=== PATIENT | female | born 1955 ===

== ENCOUNTER 2017-06-14 19:51 | Observation (INO) | payer MEDICARE ==
[2017-06-14] MEDS ORDERED: Magnesium Sulfate 2 gm/50 ml 2 GM/50 ML BAG IVPB STA (20:07)
[2017-06-14] MEDS ORDERED: Albuterol-Ipratrop 3 mg / 0.5 (3 ml) UD INH STA ×3 (20:07→20:08)
[2017-06-14 20:23] LABS: BASO # 0.1 K/uL (0.0-0.2); BASO % 0.8 % (0.0-2.0); EOS # 0.6 K/uL (0.0-0.7); EOS % 6.5 % (0.0-4.0); HEMATOCRIT 41.9 % (34.0-47.0); LYMPH # 2.8 K/uL (1.0-4.3); LYMPH % 28.7 % (20.0-40.0); MEAN CELL VOLUME 88.9 fl (81.0-99.0); MEAN CORPUSCULAR HGB CONC 33.8 g/dL (33.0-37.0); MEAN PLATELET VOLUME 7.7 fl (7.2-11.7); MONO # 0.7 K/uL (0.0-0.8); MONO % 7.6 % (0.0-10.0); NEUT # 5.5 K/uL (1.8-7.0); NEUT % 56.4 % (50.0-75.0); RED CELL DISTRIBUTION WIDTH 12.8 % (11.5-14.5); WHITE BLOOD COUNT 9.8 K/uL (4.8-10.8)
[2017-06-14] MEDS ORDERED: Albuterol-Ipratrop 3 mg / 0.5 (3 ml) UD ONE (20:24)
[2017-06-14] MEDS ORDERED: Magnesium Sulfate 2 gm/50 ml 2 GM/50 ML BAG ONE (20:24)
[2017-06-14 20:36] LABS: ALB/GLOB RATIO 1.3 (1.0-2.1); ALKALINE PHOSPHATASE 93 U/L (38-126); ALT/SGPT 57 U/L (9-52); AST/SGOT 38 U/L (14-36); BILIRUBIN,TOTAL 0.7 mg/dl (0.2-1.3); BLOOD UREA NITROGEN 19 mg/dl (7-17); CALCIUM 9.9 mg/dL (8.4-10.2); CARBON DIOXIDE 28 mmol/L (22-30); CHLORIDE 102 mmol/L (98-107); GFR AFRICAN-AMERICAN > 60; GLUCOSE,RANDOM 159 mg/dL (65-105); POTASSIUM 4.4 MMOL/L (3.6-5.0); SODIUM 139 mmol/l (132-148); TOTAL PROTEIN 7.7 G/DL (6.3-8.2)
[2017-06-14 20:40] LABS: VENOUS BLOOD GAS BASE EXCESS 3.8 mmol/L (0.0-2.0); VENOUS BLOOD GAS PCO2 42 mmHg (40-60); VENOUS BLOOD PH 7.44 (7.32-7.43)
--- NOTE | 2017-06-14 21:16 | ED PDOC ---
HPI: SOB/CHF/COPD Time Seen by Provider: 06/14/17 20:00 Chief Complaint (Nursing): Respiratory Distress Chief Complaint (Provider): Shortnss of Breath History Per: Patient History/Exam Limitations: no limitations Onset/Duration Of Symptoms: Days (x7 days) Current Symptoms Are (Timing): Still Present Initiating Event: Out Of Medications (Out of dulera) Associated Symptoms: Chest Pain. denies: Fever, Chills, Productive Cough Additional Complaint(s): Puja Deng, a 61 year old female, who has a past medical history of diabetes and asthma presents to the ED complaining of shortness of breath x7 days. The patient states that she is out of dulera which is the medication she uses to keep her asthma under control, and now her asthma is out of control. She reports that she has been using her albuterol pump and nebulizer but they are not helping. Patient also notes a non productive cough associated with bilateral chest pain. Denies fever, chills. Past Medical History Reviewed: Historical Data, Nursing Documentation, Vital Signs Vital Signs: Last Vital Signs Temp 98.3 F 06/14/17 22:11 Pulse 83 06/14/17 22:11 Resp 24 06/14/17 22:11 BP 146/76 06/14/17 19:52 Pulse Ox 96 06/14/17 21:47 - Medical History PMH: Asthma, Diabetes - Family History Family History: States: Unknown Family Hx - Allergies Allergies/Adverse Reactions: Allergies Allergy/AdvReac Type Severity Reaction Status Date / Time iodine Allergy RASH Verified 06/14/17 19:57 Review of Systems ROS Statement: Except As Marked, All Systems Reviewed And Found Negative Constitutional: Negative for: Fever, Chills Cardiovascular: Positive for: Chest Pain (Bilateral chest pain.) Respiratory: Positive for: Cough (non productive cough), Shortness of Breath Physical Exam - Reviewed Nursing Documentation Reviewed: Yes Vital Signs Reviewed: Yes - Physical Exam Appears: Positive for: Non-toxic, No Acute Distress Head Exam: Positive for: ATRAUMATIC, NORMAL INSPECTION, NORMOCEPHALIC Skin: Positive for: Normal Color, Warm, Dry Eye Exam: Positive for: Normal appearance, EOMI, PERRL ENT: Positive for: Normal ENT Inspection Neck: Positive for: Normal, Painless ROM, Supple Cardiovascular/Chest: Positive for: Regular Rate, Rhythm, Chest Non Tender. Negative for: Tachycardia Respiratory: Positive for: Decreased Breath Sounds, Wheezing (diffuse wheezing bilaterally; audible wheezing), Respiratory Distress (Mild respiratory distress. ) Gastrointestinal/Abdominal: Positive for: Normal Exam Back: Positive for: Normal Inspection Neurologic/Psych: Positive for: Alert, Oriented, Gait - Laboratory Results Result Diagrams: 06/14/17 20:20 06/14/17 20:20 - ECG O2 Sat by Pulse Oximetry: 96 (RA) Pulse Ox Interpretation: Normal Medical Decision Making Medical Decision Makin Initial Impression: 61 year old female presenting with asthma exacerbation Initial Plan: * ABG shock panel * VBG shock panel * EKG * Comp Metabolic Panel * Troponin * CBC * Chest x-ray * Duoneb 3ml INH * Magnesium Sulfate 2gm in 50ml IVPB * Solu-medrol 125mg IVP * Toradol 15mg IVP * Peak flow pre/post .tx * Reevaluation 2100 Pt. still wheezing considerably and has not improved significantly, although patient reports she's feeling better. Still audibly wheezing and lung exam in unchanged. Discussed case with Dr. Dolly Lisa who examined patient at bedside, patient to be admitted to [facility] for Asthma exacerbation. Scribe Attestation Documented by Mariam Condon acting as a scribe for Mango Garcia MD. Provider Attestation All medical record entries made by the Scribe were at my direction and personally dictated by me. I have reviewed the chart and agree that the record accurately reflects my personal performance of the history, physical exam, medical decision making, and the department course for this patient. I have also personally directed, reviewed, and agree with the discharge instructions and disposition. Disposition - Clinical Impression Clinical Impression: Asthma exacerbation - Disposition Disposition Time: 21:05 Condition: STABLE Forms: Vyyo (Japanese)
--- NOTE | 2017-06-14 21:18 | CP.PCM.HP ---
History of Present Illness - History of Present Illness History of Present Illness: 61 yr old F with PMHx including Asthma, DM Type 2, Hyperlipidemia and Bipolar Disorder presented to the ED with worsening SOB and wheezing x 1 week after she ran out of her Dulera (corticosteroid inhaler). She has associated symptom of non-productive cough and chest pain. Denies fever, palpitations, weakness or dizziness. Reports using her albuterol inhaler and nebulizer but it hasn't helped much. PMD: Dr. Saenz PMHx: Asthma, DM Type 2, Hyperlipidemia and Bipolar Disorder SurgHx: Hysterectomy, Lipoma removed from abd LUQ, Oophorectomy, Cardiac Cath FHx: Mother at 84-cardiac arrest/DM Type 2; Father at 70 -liver failure/hepatitis, siblings with HTN and asthma SocHx: denies smoking/Etoh/drugs; lives alone, daughter lives in [place], [place] [phone] Medications: Dulera 200mcg/5mcg BID, Ventolin 90mcg , Montelukast 10mg PO QD, Omeprazole 20mg PO BID, HCTZ 25mg PO QD, Lisinopril 40mg PO QD, Metformin 500mg PO BID Allergies: iodine (contrast)-causes rash ED course -VS:BP 146/76 mmHg, HR 103, T 98 F, RR 23, O2 sat 96% on room air -EKG: NSR -CXR: pulmonary congestion, official report pending -CBC wnl, troponin neg x 1, alk phos 93 -CMP: wnl, AST/ALT 38/57 -vBG: pO2 40, pH 7.44, pCO2 42, HCO3 27.2, Lactate 1.5 -ED tx: Duoneb x 3, Mag 2gm IV once, Toradol 15mg IV once, Solu-medrol 125mg IV once Present on Admission - Present on Admission Any Indicators Present on Admission: No History of DVT/PE: No History of Uncontrolled Diabetes: No Urinary Catheter: No Decubitus Ulcer Present: No Review of Systems - Review of Systems All systems: reviewed and no additional remarkable complaints except (for what is mentioned in the HPI) Meds Allergies/Adverse Reactions: Allergies Allergy/AdvReac Type Severity Reaction Status Date / Time iodine Allergy RASH Verified 06/14/17 19:57 Physical Exam - Constitutional Appears: Other (in mild respiratory distress) - Head Exam Head Exam: ATRAUMATIC, NORMOCEPHALIC - Eye Exam Eye Exam: EOMI, PERRL - ENT Exam ENT Exam: Mucous Membranes Moist - Neck Exam Neck exam: Positive for: Full Rom. Negative for: Lymphadenopathy - Respiratory Exam Respiratory Exam: Wheezes (diffuse, audible), Respiratory Distress (mild) - Cardiovascular Exam Cardiovascular Exam: REGULAR RHYTHM, +S1, +S2 - GI/Abdominal Exam GI & Abdominal Exam: Normal Bowel Sounds, Soft (obese). absent: Tenderness - Extremities Exam Extremities exam: Positive for: full ROM. Negative for: calf tenderness, pedal edema - Back Exam Back exam: absent: CVA tenderness (L), CVA tenderness (R) - Neurological Exam Neurological exam: Alert, CN II-XII Intact, Oriented x3 - Psychiatric Exam Psychiatric exam: Normal Affect, Normal Mood - Skin Skin Exam: Dry, Intact, Warm Results - Vital Signs Recent Vital Signs: Last Vital Signs Temp 98 F 06/14/17 19:52 Pulse 103 H 06/14/17 19:52 Resp 23 06/14/17 19:52 BP 146/76 06/14/17 19:52 Pulse Ox 96 06/14/17 21:16 - Labs Result Diagrams: 06/14/17 20:20 06/14/17 20:20 Labs: Laboratory Results - last 24 hr 06/14/17 06/14/17 06/14/17 20:20 20:20 20:39 WBC 9.8 RBC 4.71 Hgb 14.1 Hct 41.9 MCV 88.9 MCH 30.0 MCHC 33.8 RDW 12.8 Plt Count 315 MPV 7.7 Neut % (Auto) 56.4 Lymph % (Auto) 28.7 [place] % (Auto) 7.6 Eos % (Auto) 6.5 H Baso % (Auto) 0.8 Neut # 5.5 Lymph # 2.8 [place] # 0.7 Eos # 0.6 Baso # 0.1 pO2 40 VBG pH 7.44 H VBG pCO2 42 VBG HCO3 27.2 VBG Total CO2 29.8 H VBG O2 Sat (Calc) 78.7 H VBG Base Excess 3.8 H VBG Potassium 3.6 Glucose 167 H Lactate 1.5 FiO2 21.0 Sodium 139 137.0 Potassium 4.4 Chloride 102 103.0 Carbon Dioxide 28 Anion Gap 13 BUN 19 H Creatinine 0.8 Est GFR ( Amer) > 60 Est GFR (Non-Af Amer) > 60 Random Glucose 159 H Calcium 9.9 Total Bilirubin 0.7 AST 38 H ALT 57 H Alkaline Phosphatase 93 Troponin I < 0.0120 Total Protein 7.7 Albumin 4.4 Globulin 3.3 Albumin/Globulin Ratio 1.3 Venous Blood Potassium 3.6 Assessment & Plan - Assessment and Plan (Free Text) Assessment: 61 yr old F admitted for Asthma exacerbation with PMHx of Asthma, DM Type 2, Hyperlipidemia and Bipolar Disorder. Patient continued to have audible wheezing and mild respiratory distress despite ED tx with duoneb, IV solumedrol and IV Mag. Asthma Exacerbation -acute, due to medication non-compliance -Admit to tele for further management -Albuterol 3mL INH Q4 -Methylprednisone 60mg IV Q12H -Montelukast 10mg PO QD -supplemental O2 via nasal cannula to keep O2 sat> 92% Diabetes Type 2 -controlled, chronic -Metformin 500mg PO BID -accucheck ACHS -f/u HbA1c, lipid panel Bipolar disorder -stable, chronic -not on home meds DVT prophylaxis -Lovenox 40mg SC QD - Date & Time Date: 06/15/17 Time: 21:30
[2017-06-15] MEDS: Albuterol-Ipratrop 3 mg / 0.5 (3 ml) UD INH SCH ×5 (00:46→19:45)
[2017-06-15] MEDS ORDERED: Albuterol-Ipratrop 3 mg / 0.5 (3 ml) UD INH STA (05:36)
[2017-06-15 08:24] LABS: ALB/GLOB RATIO 1.3 (1.0-2.1); ALKALINE PHOSPHATASE 93 U/L (38-126); ALT/SGPT 42 U/L (9-52); AST/SGOT 32 U/L (14-36); BILIRUBIN,TOTAL 0.8 mg/dl (0.2-1.3); BLOOD UREA NITROGEN 24 mg/dl (7-17); CALCIUM 9.8 mg/dL (8.4-10.2); CARBON DIOXIDE 26 mmol/L (22-30); CHLORIDE 99 mmol/L (98-107); CHOLESTEROL 279 mg/dL (0-199); GFR AFRICAN-AMERICAN > 60; GLUCOSE,RANDOM 383 mg/dL (65-105); POTASSIUM 4.8 MMOL/L (3.6-5.0); SODIUM 136 mmol/l (132-148); TOTAL PROTEIN 7.3 G/DL (6.3-8.2)
[2017-06-15 08:25] LABS: BASO % 0.3 % (0.0-2.0); EOS % 0.1 % (0.0-4.0); HEMATOCRIT 40.3 % (34.0-47.0); LYMPH # 0.8 K/uL (1.0-4.3); LYMPH % 10.8 % (20.0-40.0); MEAN CELL VOLUME 90.2 fl (81.0-99.0); MEAN CORPUSCULAR HEMOGLOBIN 30.6 pg (27.0-31.0); MEAN PLATELET VOLUME 8.6 fl (7.2-11.7); MONO # 0.1 K/uL (0.0-0.8); NEUT # 6.7 K/uL (1.8-7.0); NEUT % 87.8 % (50.0-75.0); RED CELL DISTRIBUTION WIDTH 13.3 % (11.5-14.5); WHITE BLOOD COUNT 7.6 K/uL (4.8-10.8)
[2017-06-15] MEDS ORDERED: methylPREDNISolone 60 MG in Sodium Chloride 0.9% 50 ML IV SCH (09:00)
[2017-06-15] MEDS: Enoxaparin 40 mg Syringe SC SCH (09:38)
[2017-06-15] MEDS: Pantoprazole 40 mg EC Tab PO SCH (09:38)
--- NOTE | 2017-06-15 09:42 | RAD ---
PROCEDURE: CHEST RADIOGRAPH, 1 VIEW HISTORY: asthma, cough COMPARISON: None available. FINDINGS: LUNGS: Clear. PLEURA: No pneumothorax or pleural fluid seen. CARDIOVASCULAR: Normal. OSSEOUS STRUCTURES: No significant abnormalities. VISUALIZED UPPER ABDOMEN: Normal. OTHER FINDINGS: None. IMPRESSION: No active disease.
[2017-06-15] MEDS ORDERED: Glucagon Recombinant 1 mg Inj IM PRN (11:19)
[2017-06-15] MEDS ORDERED: Dextrose 50% SYRINGE Inj (50 ml) IV PRN (11:19)
--- NOTE | 2017-06-15 13:12 | CARD ---
APPROVED REPORT EKG Measurement Heart [id number] <Conclusion> Normal sinus rhythm Normal ECG
[2017-06-15] MEDS: Insulin Regular 100 units/ml SC SCH ×3 (13:13→21:30)
--- NOTE | 2017-06-15 13:13 | CP.PCM.PN ---
Subjective - Date & Time of Evaluation Date of Evaluation: 06/15/17 Time of Evaluation: 08:15 - Subjective Subjective: Pt was seen and evaluated at bedside, appeared in no acute distress, stated that her breathing has much improved since yesterday when she came into the ED. It was explained to pt that because she is getting steroids to help with her breathing, that her blood sugar will likely increase and she may require insulin to control it during the hospital stay. Pt verbalized understanding and agreed. She also complained of burning sensation "in the whole body," and stated that she has had this happen before, and that it has been happening for 2 -3 days. Stated that taking omeprazole helps control the burning sensation in her abdomen, and that drinking water helped as well. No signs of allergic reaction to any medication pt has received this admission, no sign of allergic reaction in general. Denied chest pain, abdominal pain, rash/hives, calf/leg pain/swelling. Objective - Vital Signs/Intake and Output Vital Signs (last 24 hours): Temp Pulse Resp BP Pulse Ox 97.6 F 85 18 137/84 95 06/15/17 12:00 06/15/17 12:00 06/15/17 12:00 06/15/17 12:00 06/15/17 12:00 - Medications Medications: Current Medications Acetaminophen (Tylenol 325mg Tab) 650 mg PO Q6 PRN PRN Reason: Pain, Mild (1-3) Albuterol/Ipratropium (Duoneb 3 Mg/0.5 Mg (3 Ml) Ud) 3 ml INH RQID [facility] Last Admin: 06/15/17 11:25 Dose: 3 ml Dextrose (Dextrose 50% Inj) 0 ml IV STAT PRN; Protocol PRN Reason: Hyglycemia Protocol Dextrose (Glutose 15) 0 gm PO ONCE PRN; Protocol PRN Reason: Hypoglycemia Protocol Enoxaparin Sodium (Lovenox) 40 mg SC DAILY [facility] PRN Reason: Protocol Last Admin: 06/15/17 09:38 Dose: 40 mg Glucagon (Glucagen Diagnostic Kit) 0 mg IM STAT PRN; Protocol PRN Reason: Hypoglycemia Protocol Hydrochlorothiazide (Hydrodiuril) 25 mg PO DAILY [facility] Last Admin: 06/15/17 09:31 Dose: 25 mg Methylprednisolone 80 mg/ (Sodium Chloride) 50 mls @ 100 mls/hr IVPB Q8 [facility] Insulin Human Regular (Humulin R) 0 units SC ACHS [facility] PRN Reason: Protocol Lisinopril (Zestril) 40 mg PO DAILY [facility] Last Admin: 06/15/17 09:31 Dose: 40 mg Metformin HCl (Glucophage) 500 mg PO BIDWM [facility] Last Admin: 06/15/17 09:31 Dose: 500 mg Montelukast Sodium (Singulair) 10 mg PO DAILY [facility] Last Admin: 06/15/17 09:31 Dose: 10 mg Pantoprazole Sodium (Protonix Ec Tab) 40 mg PO DAILY [facility] Last Admin: 06/15/17 09:38 Dose: 40 mg - Constitutional Appears: No Acute Distress - Head Exam Head Exam: ATRAUMATIC, NORMAL INSPECTION - Eye Exam Eye Exam: EOMI, Normal appearance - ENT Exam ENT Exam: Mucous Membranes Moist - Neck Exam Neck Exam: Full ROM, Normal Inspection - Respiratory Exam Respiratory Exam: NORMAL BREATHING PATTERN. absent: Accessory Muscle Use, Respiratory Distress Additional comments: slightly decreased breath sounds at bases bilaterally - Cardiovascular Exam Cardiovascular Exam: REGULAR RHYTHM, +S1, +S2 - GI/Abdominal Exam GI & Abdominal Exam: Soft, Normal Bowel Sounds - Extremities Exam Extremities Exam: Normal Capillary Refill, Normal Inspection. absent: Calf Tenderness, Pedal Edema - Back Exam Back Exam: NORMAL INSPECTION - Neurological Exam Neurological Exam: Alert, Awake, Oriented x3 - Psychiatric Exam Psychiatric exam: Normal Mood - Skin Skin Exam: Dry, Intact, Warm Assessment and Plan - Assessment and Plan (Free Text) Assessment: 61 yo old F with PMH asthma, HTN, DM2, HLD, bipolar disorder admitted for asthma exacerbation. Pt symptoms have improved since admission, she is no longer in any respiratory distress, and is continuing to receive methylprednisone, which is helping improve symptoms. Plan: 1) Asthma Exacerbation -Acute, due to medication noncompliance since pt has not refilled meds -Continue with methylprednisone 80mg IV Q8H -Continue with montelukast 10mg PO QD -Continue with albuterol 3mL INH Q4 -Monitor for respiratory distress 2) Diabetes Type 2 -Continue home meds: metformin 500mg PO BID -Monitor blood glucose with accucheck -Insulin coverage scale since pt is getting methylprednisone and blood glucose can spike. Pt is insulin naive. -Hyperglycemia protocol -F/u HbA1c, lipid panel 3) Hypertension -Controlled -Continue with home meds: Lisinopril 40mg PO daily, HCTZ 25 mg PO daily 4) Hyperlipidemia -Not on meds as per pcp due to elevated lft -F/u with outpt pcp 5) GERD -Continue pantoprazole 40mg PO daily 6) Bipolar disorder -Stable, chronic -Not on home meds 7) DVT prophylaxis -Lovenox 40mg SC QD
[2017-06-15] MEDS: methylPREDNISolone 80 MG in Sodium Chloride 0.9% 50 ML IVPB SCH (16:52)
[2017-06-16] MEDS: methylPREDNISolone 80 MG in Sodium Chloride 0.9% 50 ML IVPB SCH ×2 (01:08→09:22)
[2017-06-16] MEDS: Insulin Regular 100 units/ml SC SCH ×4 (06:51→22:18)
[2017-06-16] MEDS: Albuterol-Ipratrop 3 mg / 0.5 (3 ml) UD INH SCH ×4 (08:00→19:04)
[2017-06-16] MEDS: Enoxaparin 40 mg Syringe SC SCH (09:23)
[2017-06-16] MEDS: Pantoprazole 40 mg EC Tab PO SCH (09:23)
--- NOTE | 2017-06-16 10:18 | CP.PCM.PN ---
Subjective - Date & Time of Evaluation Date of Evaluation: 06/16/17 Time of Evaluation: 07:05 - Subjective Subjective: Patient was seen and evaluated at bedside, was observed sleeping comfortably in bed earlier in the morning. Reports that her breathing has improved since admission, has no dyspnea at rest, but reports feeling a tightness in her chest upon ambulation. Offers no other complaints at this time. Denies chest pain, worsening sob, abdominal pain, leg/calf pain/swelling. Of note, patient has two medical records in [facility]. Other record has birthday listed as 1955. Objective - Vital Signs/Intake and Output Vital Signs (last 24 hours): Temp Pulse Resp BP Pulse Ox 97.8 F 74 18 121/77 95 06/16/17 08:00 06/16/17 09:23 06/16/17 08:00 06/16/17 09:23 06/16/17 08:00 Intake and Output: 06/16/17 06/16/17 06:59 18:59 Intake Total 450 Balance 450 - Medications Medications: Current Medications Acetaminophen (Tylenol 325mg Tab) 650 mg PO Q6 PRN PRN Reason: Pain, Mild (1-3) Albuterol/Ipratropium (Duoneb 3 Mg/0.5 Mg (3 Ml) Ud) 3 ml INH RQID [facility] Last Admin: 06/16/17 08:00 Dose: 3 ml Dextrose (Dextrose 50% Inj) 0 ml IV STAT PRN; Protocol PRN Reason: Hyglycemia Protocol Dextrose (Glutose 15) 0 gm PO ONCE PRN; Protocol PRN Reason: Hypoglycemia Protocol Enoxaparin Sodium (Lovenox) 40 mg SC DAILY [facility] PRN Reason: Protocol Last Admin: 06/16/17 09:23 Dose: 40 mg Glucagon (Glucagen Diagnostic Kit) 0 mg IM STAT PRN; Protocol PRN Reason: Hypoglycemia Protocol Hydrochlorothiazide (Hydrodiuril) 25 mg PO DAILY [facility] Last Admin: 06/16/17 09:22 Dose: 25 mg Methylprednisolone 80 mg/ (Sodium Chloride) 50 mls @ 100 mls/hr IVPB Q8 [facility] Last Admin: 06/16/17 09:22 Dose: 100 mls/hr Insulin Human Regular (Humulin R) 0 units SC ACHS [facility] PRN Reason: Protocol Last Admin: 06/16/17 06:51 Dose: 5 units Lisinopril (Zestril) 40 mg PO DAILY [facility] Last Admin: 06/16/17 09:23 Dose: 40 mg Metformin HCl (Glucophage) 500 mg PO BIDWM [facility] Last Admin: 06/16/17 09:23 Dose: 500 mg Montelukast Sodium (Singulair) 10 mg PO DAILY [facility] Last Admin: 06/16/17 09:22 Dose: 10 mg Pantoprazole Sodium (Protonix Ec Tab) 40 mg PO DAILY [facility] Last Admin: 06/16/17 09:23 Dose: 40 mg - Constitutional Appears: Non-toxic, No Acute Distress - Head Exam Head Exam: NORMAL INSPECTION - Eye Exam Eye Exam: EOMI - ENT Exam ENT Exam: Mucous Membranes Moist - Respiratory Exam Respiratory Exam: Clear to Ausculation Bilateral, NORMAL BREATHING PATTERN. absent: Wheezes - Cardiovascular Exam Cardiovascular Exam: REGULAR RHYTHM, +S1, +S2 - GI/Abdominal Exam GI & Abdominal Exam: Soft, Normal Bowel Sounds - Extremities Exam Extremities Exam: absent: Calf Tenderness - Back Exam Back Exam: NORMAL INSPECTION - Neurological Exam Neurological Exam: Alert, Awake, Oriented x3 - Psychiatric Exam Psychiatric exam: Normal Mood - Skin Skin Exam: Dry, Intact, Normal Color, Warm Assessment and Plan - Assessment and Plan (Free Text) Assessment: 61 yo old F with PMH asthma, HTN, DM2, HLD, bipolar disorder admitted for asthma exacerbation. Pt symptoms have improved since admission, she is no longer in respiratory distress, but is experiencing some chest tightness upon excretion, and is continuing to receive methylprednisone, which is helping improve symptoms. Plan: 1) Asthma Exacerbation -Acute, due to medication noncompliance since pt has not refilled meds -Asthma- mild persistent -Improving -Continue with methylprednisone, decrease dose to 60mg IV Q8H -Continue with montelukast 10mg PO QD -Continue with albuterol 3mL INH Q4 -Monitor for respiratory distress 2) Diabetes Type 2 -Continue home meds: metformin 500mg PO BID -Monitor blood glucose with accucheck -Insulin coverage scale since pt is getting methylprednisone and blood glucose can spike. Pt is insulin naive. -Hyperglycemia protocol -A1C 7.2, last known 8.1 in 07/2016 as per eCW 3) Hypertension -Controlled -Continue with home meds: Lisinopril 40mg PO daily, HCTZ 25 mg PO daily 4) Hyperlipidemia -Not on meds as per pcp due to elevated LFTs in the past -Cholesterol 279, LDL 211, HDL 47 -F/u with outpt pcp 5) GERD -Continue pantoprazole 40mg PO daily 6) Bipolar disorder -Stable, chronic -Not on home meds 7) DVT prophylaxis -Lovenox 40mg SC QD
[2017-06-16] MEDS ORDERED: Insulin Lispro (humaLOG) 100 Units/ml Inj SC ONE (16:14)
[2017-06-16] MEDS: methylPREDNISolone 60 MG in Sodium Chloride 0.9% 50 ML IVPB SCH (16:47)
[2017-06-17] MEDS: methylPREDNISolone 60 MG in Sodium Chloride 0.9% 50 ML IVPB SCH ×2 (00:20→09:25)
[2017-06-17] MEDS: Insulin Regular 100 units/ml SC SCH ×2 (06:48→13:17)
[2017-06-17] MEDS: Albuterol-Ipratrop 3 mg / 0.5 (3 ml) UD INH SCH ×3 (07:25→15:51)
--- NOTE | 2017-06-17 09:03 | CP.PCM.PN ---
Subjective - Date & Time of Evaluation Date of Evaluation: 06/17/17 Time of Evaluation: 09:01 - Subjective Subjective: Patient was seen and examined at the bedside. Denies SOB and states that her breathing is back to baseline. Complains of a non productive cough that she has had for the past 3 days with associated chest tightness that has been improving. Objective - Vital Signs/Intake and Output Vital Signs (last 24 hours): Temp Pulse Resp BP Pulse Ox 98.0 F 61 18 124/79 94 L 06/17/17 08:00 06/17/17 08:00 06/17/17 08:00 06/17/17 08:00 06/17/17 08:00 - Medications Medications: Current Medications Acetaminophen (Tylenol 325mg Tab) 650 mg PO Q6 PRN PRN Reason: Pain, Mild (1-3) Last Admin: 06/16/17 10:05 Dose: 650 mg Albuterol/Ipratropium (Duoneb 3 Mg/0.5 Mg (3 Ml) Ud) 3 ml INH RQID [facility] Last Admin: 06/17/17 07:25 Dose: 3 ml Dextrose (Dextrose 50% Inj) 0 ml IV STAT PRN; Protocol PRN Reason: Hyglycemia Protocol Dextrose (Glutose 15) 0 gm PO ONCE PRN; Protocol PRN Reason: Hypoglycemia Protocol Enoxaparin Sodium (Lovenox) 40 mg SC DAILY [facility] PRN Reason: Protocol Last Admin: 06/16/17 09:23 Dose: 40 mg Glucagon (Glucagen Diagnostic Kit) 0 mg IM STAT PRN; Protocol PRN Reason: Hypoglycemia Protocol Hydrochlorothiazide (Hydrodiuril) 25 mg PO DAILY [facility] Last Admin: 06/16/17 09:22 Dose: 25 mg Methylprednisolone 60 mg/ (Sodium Chloride) 50 mls @ 100 mls/hr IVPB Q8 [facility] Last Admin: 06/17/17 00:20 Dose: 100 mls/hr Insulin Human Regular (Humulin R) 0 units SC ACHS [facility] PRN Reason: Protocol Last Admin: 06/17/17 06:48 Dose: 5 units Lisinopril (Zestril) 40 mg PO DAILY [facility] Last Admin: 06/16/17 09:23 Dose: 40 mg Metformin HCl (Glucophage) 500 mg PO BIDWM [facility] Last Admin: 06/16/17 16:50 Dose: 500 mg Montelukast Sodium (Singulair) 10 mg PO DAILY [facility] Last Admin: 06/16/17 09:22 Dose: 10 mg Pantoprazole Sodium (Protonix Ec Tab) 40 mg PO DAILY [facility] Last Admin: 06/16/17 09:23 Dose: 40 mg - ENT Exam ENT Exam: Mucous Membranes Moist - Neck Exam Neck Exam: absent: Thyromegaly - Respiratory Exam Respiratory Exam: Clear to Ausculation Bilateral. absent: Accessory Muscle Use , Chest Wall Tenderness, Wheezes, Respiratory Distress - Cardiovascular Exam Cardiovascular Exam: REGULAR RHYTHM, +S1, +S2. absent: Murmur - Extremities Exam Extremities Exam: absent: Calf Tenderness Additional comments: Dilated and tortous veins diffusley scattered on both limbs (chronic), (New) Dilated and tortous veins on Right medial thigh - Skin Skin Exam: Normal Color. absent: Rash, Urticaria, Warm Assessment and Plan - Assessment and Plan (Free Text) Assessment: Assessment: 61 yo old F with PMH asthma, HTN, DM2, HLD, bipolar disorder admitted for asthma exacerbation. Pt is no longer in repiratory disress and denies any difficulty breathing or wheezing. She is still experiencing chest tightness and a nonproductive cough, although it has improved from admission. Plan: 1) Asthma Exacerbation -Resolved, no SOB, Wheezing, mild residual chest tightness and cough. Cough is non productive, patient is afebrile with good O2 saturation, latest Cxray was negative of consolidation (06/05) so it is likely a viral cold -Pt has a hx of Asthma- mild persistent -Currently on Methylprednisone 60mg IV Q8H but will change to PO steroids on D/C -Continue with montelukast 10mg PO QD -Continue with albuterol 3mL INH Q4 -Monitor for respiratory distress 2) Diabetes Type 2 -Continue home meds: metformin 500mg PO BID -Monitor blood glucose with accucheck -Insulin coverage scale since pt is getting methylprednisone and blood glucose can spike. Pt is insulin naive. -Hyperglycemia protocol -A1C 7.2, last known 8.1 in 07/2016 as per eCW 3) Hypertension -Controlled -Continue with home meds: Lisinopril 40mg PO daily, HCTZ 25 mg PO daily 4) Hyperlipidemia -Not on meds as per pcp due to elevated LFTs in the past -Cholesterol 279, LDL 211, HDL 47 -F/u with outpt pcp 5) GERD -Continue pantoprazole 40mg PO daily 6) Bipolar disorder -Stable, chronic -Not on home meds 7) DVT prophylaxis -Lovenox 40mg SC QD
[2017-06-17] MEDS: Enoxaparin 40 mg Syringe SC SCH (09:26)
[2017-06-17] MEDS: Pantoprazole 40 mg EC Tab PO SCH (09:28)
--- NOTE | 2017-06-17 09:45 | PCM.RRTMUL ---
CHEF GERMAN Nurse Assessment - Vital Signs Blood Pressure:: 124/79 Pulse Rate:: 61 - [place] Coma Scale Coma Scale Eye Opening:: Spontaneous Coma Scale Motor:: Obeys Commands Movement Coma Scale Verbal:: Oriented Coma Scale Total:: 15
--- NOTE | 2017-06-17 13:16 | CP.PCM.DIS ---
Provider - Provider Date of Admission: 06/15/17 12:04 Attending physician: Harriett Hernandez MD Time Spent in preparation of Discharge (in minutes): 30 Diagnosis - Discharge Diagnosis (1) Asthma exacerbation Status: Resolved Hospital Course - Lab Results Lab Results: Most Recent Lab Values WBC 7.6 K/uL (4.8-10.8) 06/15/17 07:00 RBC 4.47 Mil/uL (3.80-5.20) 06/15/17 07:00 Hgb 13.7 g/dL (12.0-16.0) 06/15/17 07:00 Hct 40.3 % (34.0-47.0) 06/15/17 07:00 MCV 90.2 fl (81.0-99.0) 06/15/17 07:00 MCH 30.6 pg (27.0-31.0) 06/15/17 07:00 MCHC 34.0 g/dL (33.0-37.0) 06/15/17 07:00 RDW 13.3 % (11.5-14.5) 06/15/17 07:00 Plt Count 280 K/uL (130-400) 06/15/17 07:00 MPV 8.6 fl (7.2-11.7) 06/15/17 07:00 Neut % (Auto) 87.8 % (50.0-75.0) H 06/15/17 07:00 Lymph % (Auto) 10.8 % (20.0-40.0) L 06/15/17 07:00 Pacific % (Auto) 1.0 % (0.0-10.0) 06/15/17 07:00 Eos % (Auto) 0.1 % (0.0-4.0) 06/15/17 07:00 Baso % (Auto) 0.3 % (0.0-2.0) 06/15/17 07:00 Neut # 6.7 K/uL (1.8-7.0) 06/15/17 07:00 Lymph # 0.8 K/uL (1.0-4.3) L 06/15/17 07:00 Pacific # 0.1 K/uL (0.0-0.8) 06/15/17 07:00 Eos # 0.0 K/uL (0.0-0.7) 06/15/17 07:00 Baso # 0.0 K/uL (0.0-0.2) 06/15/17 07:00 pO2 40 mm/Hg (30-55) 06/14/17 20:39 VBG pH 7.44 (7.32-7.43) H 06/14/17 20:39 VBG pCO2 42 mmHg (40-60) 06/14/17 20:39 VBG HCO3 27.2 mmol/L 06/14/17 20:39 VBG Total CO2 29.8 mmol/L (22-28) H 06/14/17 20:39 VBG O2 Sat (Calc) 78.7 % (40-65) H 06/14/17 20:39 VBG Base Excess 3.8 mmol/L (0.0-2.0) H 06/14/17 20:39 VBG Potassium 3.6 mmol/L (3.6-5.2) 06/14/17 20:39 Sodium 137.0 mmol/L (132-148) 06/14/17 20:39 Chloride 103.0 mmol/L (98-107) 06/14/17 20:39 Glucose 167 mg/dL (65-105) H 06/14/17 20:39 Lactate 1.5 mmol/L (0.7-2.1) 06/14/17 20:39 FiO2 21.0 % 06/14/17 20:39 Sodium 136 mmol/l (132-148) 06/15/17 07:00 Potassium 4.8 MMOL/L (3.6-5.0) 06/15/17 07:00 Chloride 99 mmol/L (98-107) 06/15/17 07:00 Carbon Dioxide 26 mmol/L (22-30) 06/15/17 07:00 Anion Gap 15 (10-20) 06/15/17 07:00 BUN 24 mg/dl (7-17) H 06/15/17 07:00 Creatinine 0.7 mg/dL (0.7-1.2) 06/15/17 07:00 Est GFR ( Amer) > 60 06/15/17 07:00 Est GFR (Non-Af Amer) > 60 06/15/17 07:00 POC Glucose (mg/dL) 329 mg/dL (65-110) H 06/17/17 11:38 Random Glucose 383 mg/dL (65-105) H 06/15/17 07:00 Hemoglobin A1c 7.2 % (4.2-6.5) H 06/15/17 07:00 Calcium 9.8 mg/dL (8.4-10.2) 06/15/17 07:00 Total Bilirubin 0.8 mg/dl (0.2-1.3) 06/15/17 07:00 AST 32 U/L (14-36) 06/15/17 07:00 ALT 42 U/L (9-52) 06/15/17 07:00 Alkaline Phosphatase 93 U/L (38-126) 06/15/17 07:00 Troponin I < 0.0120 ng/mL (0.00-0.120) 06/14/17 20:20 Total Protein 7.3 G/DL (6.3-8.2) 06/15/17 07:00 Albumin 4.2 g/dL (3.5-5.0) 06/15/17 07:00 Globulin 3.2 gm/dL (2.2-3.9) 06/15/17 07:00 Albumin/Globulin Ratio 1.3 (1.0-2.1) 06/15/17 07:00 Triglycerides 67 mg/DL (0-149) 06/15/17 07:00 Cholesterol 279 mg/dL (0-199) H 06/15/17 07:00 LDL Cholesterol Direct 211 mg/dL (0-129) H 06/15/17 07:00 HDL Cholesterol 47 MG/DL (30-70) 06/15/17 07:00 Venous Blood Potassium 3.6 mmol/L (3.6-5.2) 06/14/17 20:39 - Hospital Course Hospital Course: Admission date:06/14/17 Discharge Date: 06/17/17 Discharge Diagnosis: Acute Asthma Exacerbation Consultations: None Procedures: None Complications: None History and Hospital Course:61 yo old F with PMH asthma, HTN, DM2, HLD, bipolar disorder admitted SOB and wheezing and was treated for asthma exacerbation. Pt symptoms have resolved and she is no longer in respiratory distress, although she still has residual chest tightness. Chest Xray done on admission was clear. On the day of discharge,[employer] was called because she was complaining of chest tightness and chest pain associated with a severe amount of anxiety. Pt was noted to be emotional and crying during the [employer]. Her vitals were stable and EKG showed normal sinus rythm. Pt was observed over the next 2 hours and was found to be eating and talking on the phone. When asked what happened, she stated that she begin thinking about her health and started to feel very anxious, at which point her chest began to feel tight and painful just as it does when she has her anxiety attacks. During her hospital course, pt's POC glucose was often in the 300-400 range. Medication at Discharge: Dulera 200mcg/5mcg BID Albuterol (Ventolin) 90mcg Monteleukast 10mg PO QD Omeprazole 20mg BID HCTZ 25 mg PO QD Lisinopril 40mg PO QD Metformin 500mg PO BID Prednisone 40 qday Discharge Plan: Condition Upon Discharge: Stable Activity Level: Ambulating without assistant strength coach Diet: Regular Date of next Appt: 1-2 weeks, will make appt at the [facility] Issues to be addressed at follow up: Anxiety management, Asthma equipment needed, Varicose Vein management (compression stockings) PCP Following:Dr. Saenz Discharge Exam - Head Exam Head Exam: NORMAL INSPECTION - Respiratory Exam Respiratory Exam: NORMAL BREATHING PATTERN. absent: Accessory Muscle Use, Chest Wall Tenderness, Decreased Breath Sounds, Rales, Wheezes, Respiratory Distress - Cardiovascular Exam Cardiovascular Exam: REGULAR RHYTHM, +S1, +S2. absent: Systolic Murmur - Neurological Exam Neurological exam: Alert, Oriented x3 Discharge Plan - Discharge Medications Prescriptions: Albuterol HFA [Ventolin HFA 90 mcg/actuation (8 g)] 90 mcg PO PRN PRN 30 Days PRN Reason: Shortness Of Breath hydroCHLOROthiazide [Hydrodiuril] 25 mg PO DAILY #30 Lisinopril [Zestril] 40 mg PO DAILY #30 metFORMIN [glucOPHAGE] 500 mg PO BID #30 Mometasone/Formoterol [Dulera 200 Mcg/5 Mcg Inhaler] 13 gm IH Q12 #1 hfa.aer.ad Montelukast [Singulair] 10 mg PO HS #30 predniSONE [predniSONE Tab] 20 mg PO DAILY #7 tab - Follow Up Plan Condition: STABLE Disposition: HOME/ ROUTINE Instructions: Asthma (DC)
[2017-06-17 15:41] VITALS: BP 125/65; PULSE 75; RESP 20; TEMP 97.6; O2SAT 95
--- NOTE | 2017-06-17 20:32 | PCM.RRTMUL ---
ODD PIECE CHECKER Nurse Assessment - Situation ODD PIECE CHECKER Responder Arrival Time:: 09:36 Location:: [address] [place] [address] Room Number:: [id number] ODD PIECE CHECKER Reason for Call: Chest Pain, Respiratory Distress ODD PIECE CHECKER Called By: RN - IV IV Inserted during ODD PIECE CHECKER?: No - Respiratory Oxygen Delivery Method:: Nasal Cannula Received Nebulizer Treatments:: No Was the Patient Ventilated with Bag/Mask 100% O2?: No Secretions Suctioned?: No Was the Patient Intubated?: No Was the Patient Placed on a Ventilator?: No - Diagnostic Test Ordered EKG:: Yes CPR started during ODD PIECE CHECKER?: No - Vital Signs Blood Pressure:: 125/65 Pulse Rate:: 75 Respiratory Rate:: 20 Temperature:: 97.6 F - [place] Coma Scale Coma Scale Eye Opening:: Spontaneous Coma Scale Motor:: Obeys Commands Movement Coma Scale Verbal:: Oriented Coma Scale Total:: 15 - Time ODD PIECE CHECKER Ended Time ODD PIECE CHECKER Ended:: 09:50 - Vital Signs at end of ODD PIECE CHECKER Blood Pressure:: 171/84 Pulse Rate:: 88 Respiratory Rate:: 22 Temperature:: 97.4 F O2 Sat by Pulse Oximetry:: 95 - Recommendations 5) ODD PIECE CHECKER Level of Care Recommendations: Remain in current setting 6) Notifications: Attending Physician I.Reason for ODD PIECE CHECKER - A) Acute Change in Patient: (Select all that apply): Staff member or family is worried about patient (ODD PIECE CHECKER called on 61 y/o female with PMH HTN, DM asthma for midsternal chest pain and dyspnea) - B) Neurological Status (Select all that apply): Alert, Responsive, Oriented - C) Respiratory Oxygen Delivery Method: Nasal Cannula @L/min (2 ) - Constitutional Appears: Non-toxic - Head Head Exam: ATRAUMATIC, NORMAL INSPECTION, NORMOCEPHALIC - Eyes Eye Exam: EOMI, Normal appearance, PERRL - Respiratory Exam Respiratory Exam: Clear to Ausculation Bilateral, NORMAL BREATHING PATTERN. absent: Rales, Rhonchi, Wheezes - Cardiovascular Exam Cardiovascular Exam: REGULAR RHYTHM, RRR, +S1, +S2. absent: JVD - GI/Abdominal Exam GI & Abdominal Exam: Soft, Normal Bowel Sounds. absent: Distended, Guarding, Tenderness, Rebound - Neurological Exam Neurological Exam: Alert, Awake, CN II-XII Intact, Normal Gait, Oriented x3 - Extremities Exam Extremities Exam: Full ROM, Normal Capillary Refill, Normal Inspection Plan - B. Assessment of Findings&Treatment Plan Patient placed on 2 L O2 via NC with O2 sat 100% EKG showed NSR with no ST-T wave changes Physical exam with good air breaths bilaterally with no wheezing no rhonchi DX most likely anxiety attack Continue monitoring in telemetry primary team informed
--- NOTE | 2017-06-18 18:04 | CARD ---
APPROVED REPORT EKG Measurement Heart [id number] <Conclusion> Normal sinus rhythm Normal ECG
== END 2017-06-17 17:12 | disposition home or self-care (01) ==
LOC: H.ER 19:51 → H.ERHOLD 21:14 → H.TEL 22:35 → OBSVTOIN 06-15 12:04 → INTOOBSV 06-15 12:04
PROVIDERS: ADMIT Family Medicine; ATTEND Family Medicine
DX: J45.901 Unspecified asthma with (acute) exacerbation (principal); E11.9 Type 2 diabetes mellitus without complications; I10 Essential (primary) hypertension; E78.5 Hyperlipidemia, unspecified; F31.9 Bipolar disorder, unspecified; F41.1 Generalized anxiety disorder; J44.9 Chronic obstructive pulmonary disease, unspecified; Z79.899 Other long term (current) drug therapy; Z82.41 Family history of sudden cardiac death; Z82.49 Family history of ischemic heart disease and other diseases of the circulatory system; Z82.5 Family history of asthma and other chronic lower respiratory diseases; Z83.3 Family history of diabetes mellitus; Z91.14 Patient's other noncompliance with medication regimen; R07.89 Other chest pain
CPT/HCPCS: 36415; 71010; 80053; 80061; 82803; 82948; 83036; 84484; 85025; 93005; 94150; 94640; 96365; 96375; 99283; G0378; J1650; J1885; J2920; J2930